=== PATIENT | male | born 1955 | race Caucasian/White ===

== ENCOUNTER 2017-04-15 19:42 | Inpatient (IN) | payer OTHER ==
[~2017-04-15] VITALS: Ht 167.6 cm; Wt 61.3 kg
[~2017-04-15 19:42] MED LIST: AMLO-147 PO; DULOXETINE PO; HYDR-3027 PO; HYDR-902 PO; LYR75 PO; OMEG-135 PO; TRAM50TA2 PO
[2017-04-15] MEDS ORDERED: SODIUM CHLORIDE 0.9% 1L BAG IV* STA (21:06)
[2017-04-15] MEDS ORDERED: ACETAMINOPHEN 325 MG TAB PO STA (21:06)
[2017-04-15] MEDS ORDERED: CEFEPIME 2GM/50 ML (PMX) 50 ML IVPB STA (21:06)
[2017-04-15] MEDS ORDERED: ONDANSETRON 4 MG INJ IV STA (21:19)
[2017-04-15] MEDS ORDERED: morphine 4 MG/ML VIAL IV STA (21:19)
[2017-04-15] MEDS ORDERED: VANCOMYCIN 1 GM (PMX) 250 ML IVPB ONE (21:30)
[2017-04-15] MEDS ORDERED: PHENAZOPYRIDINE 100 MG TAB PO ONE (21:30)
[2017-04-15 21:57] LABS: ABNORMAL IP MESSAGE 1; BASOPHIL # 0.1 10^3/ul (0.0-0.1); BASOPHILS % 0.4 % (0.0-2.0); EOSINOPHILS % 0.1 % (0.0-7.0); HEMATOCRIT 39.4 % (42.0-52.0); HEMOGLOBIN 13.5 g/dl (14.0-18.0); LYMPHOCYTES # 1.3 10^3/ul (0.8-2.9); LYMPHOCYTES % 8.8 % (15.0-51.0); MEAN CORPUSCULAR HEMOGLOBIN 28.4 pg (29.0-33.0); MEAN CORPUSCULAR HGB CONC 34.3 g/dl (32.0-37.0); MEAN CORPUSCULAR VOLUME 82.8 fl (82.0-101.0); MEAN PLATELET VOLUME 9.8 fl (7.4-10.4); MONOCYTE # 1.7 10^3/ul (0.3-0.9); MONOCYTES % 11.3 % (0.0-11.0); NEUTROPHIL # 11.8 10^3/ul (1.6-7.5); NEUTROPHILS % 78.9 % (39.0-77.0); PLATELET COUNT 201 10^3/UL (140-415); POSITIVE DIFF @See below; RED BLOOD COUNT 4.76 10^6/ul (4.70-6.10); WHITE BLOOD COUNT 14.9 10^3/ul (4.8-10.8)
--- NOTE | 2017-04-15 22:22 | RADRPT ---
PROCEDURE: Chest. CLINICAL INDICATION: Chest pain. TECHNIQUE: Single frontal view of the chest was obtained. COMPARISON: 04/14/2014. FINDINGS: The cardiac silhouette is magnified. The aortic arch is unremarkable. There is mild bibasilar atele ctasis. There is no focal consolidation, vascular congestion or pleural effusion. There is no pneum othorax. IMPRESSION: Mild bibasilar atelectasis. .Jun Madrid MD, MD Date Time Electronically viewed and signed by .Jun Madrid MD, MD on 04/15/2017 22:22 .T/
[2017-04-15 22:25] LABS: INR 1.13; PARTIAL THROMBOPLASTIN TIME 33.3 Sec (25.0-35.0); PROTIME 14.5 Sec (12.2-14.2); PT RATIO 1.1
[2017-04-15 22:28] LABS: ALANINE AMINOTRANSFERASE 32 IU/L (13-69); ALBUMIN 4.7 g/dl (3.3-4.9); ALBUMIN/GLOBULIN RATIO 1.42; ALKALINE PHOSPHATASE 72 IU/L (42-121); ANION GAP 22 (8-16); ASPARTATE AMINO TRANSFERASE 26 IU/L (15-46); BILIRUBIN,INDIRECT 2.9 mg/dl (0-1.1); BILIRUBIN,TOTAL 2.9 mg/dl (0.2-1.3); BLOOD UREA NITROGEN 17 mg/dl (7-20); CALCIUM 9.2 mg/dl (8.4-10.2); CARBON DIOXIDE 22 mmol/L (21-31); CHLORIDE 97 mmol/L (97-110); CREATININE 1.25 mg/dl (0.61-1.24); GLUCOSE 115 mg/dl (70-220); SODIUM 137 mmol/L (135-144)
[2017-04-15 22:43] LABS: TROPONIN-I < 0.012 ng/ml (0.00-0.12)
--- NOTE | 2017-04-15 22:47 | RADRPT ---
PROCEDURE: CT Abdomen and Pelvis without contrast. CLINICAL INDICATION: Abdominal pain, fever. TECHNIQUE: A CT scan of the abdomen and pelvis was performed without intravenous contrast. Kulkarni l and sagittal reformatted images were generated. Images were reviewed on a high-resolution PACS wor kstation. CTDIvol: 5.86 mGy. DLP: 314.58 mGy-cm. One or more of the following dose reduction techniques were used: - Automated exposure control. - Adjustment of the mA and/or kV according to patient size. - Use of iterative reconstruction technique. COMPARISON: 05/15/2016 FINDINGS: There is mild atelectasis in both lower lobes. Evaluation of the abdominal and pelvic viscera is limited by the lack of oral and intravenous contra st. The liver is unremarkable. The gallbladder is normal in appearance. The common bile duct is not dila parul. The spleen is not enlarged. No pancreatic lesion is identified and there is no pancreatic ducta l dilatation. The adrenal glands are unremarkable. The kidneys are normal in size. There is no perinephric fat stranding. No hydronephrosis is seen. No urinary stone is identified. The small and large bowel are normal in caliber. There is no bowel wall thickening. The appendix is not definitively identified. There is a Desai catheter in place within the urinary bladder. The pelvic organs are within normal limits. No lymphadenopathy is identified. There is no ascites. No pneumoperitoneum is seen. There are minima l arterial calcifications. No suspicious osseous lesion is idenitified. There are bilateral L5 pars defects, grade 1 L5 anterol isthesis, and severe bilateral neural foraminal narrowing at L5-S1. IMPRESSION: 1. No inflammation, mass, or lymphadenopathy. 2. No obstructive uropathy or urinary stone. 3. The appendix is not definitively identified. If there is concern for appendicitis, close clinic al follow-up is recommended. 4. Bilateral L5 pars defects, grade 1 L5 anterolisthesis, and severe bilateral neural foraminal keshav rowing at L5-S1. RPTAT: HTAR .Aguilar Tyson MD, MD Date Time Electronically viewed and signed by .Aguilar Tyson MD, on 04/15/2017 22:47 .R/
[2017-04-15 23:25] LABS: ADD UMIC YES; UR AMORPHOUS CRYSTAL FEW /HPF (NONE SEEN); UR ASCORBIC ACID NEGATIVE (NEGATIVE); UR BACTERIA MANY /HPF (NONE SEEN); UR BILIRUBIN (Dip) NEGATIVE (NEGATIVE); UR BLOOD (Dip) 2+ mg/dL (NEGATIVE); UR CLARITY SLIGHTLY CLOUDY (CLEAR); UR COLOR AMBER (YELLOW); UR GLUCOSE (Dip) NEGATIVE (NEGATIVE); UR KETONES (Dip) TRACE mg/dL (NEGATIVE); UR LEUKOCYTE ESTERASE (Dip) 3+ Leu/ul (NEGATIVE); UR NITRITE (Dip) POSITIVE (NEGATIVE); UR RBC 2 /HPF (0-5); UR SPECIFIC GRAVITY (Dip) 1.005 (1.003-1.030); UR TOTAL PROTEIN (Dip) NEGATIVE (NEGATIVE); UR UROBILINOGEN (Dip) NEGATIVE (NEGATIVE)
[2017-04-15] MEDS ORDERED: traMADol 50 MG TAB PO PRN (23:30)
[2017-04-15] MEDS ORDERED: ACETAMINOPHEN 325 MG TAB PO PRN (23:30)
[2017-04-15] MEDS ORDERED: NACL 0.9% 3 ML SYG IV SCH (23:30)
[2017-04-15] MEDS ORDERED: morphine 4 MG/ML VIAL IV PRN (23:30)
[2017-04-15] MEDS ORDERED: ONDANSETRON 4 MG INJ IV PRN ×2 (23:30)
[2017-04-16 00:13] VITALS: TEMP 98.5
[2017-04-16 00:30] VITALS: BP 128/80; RESP 18; RESP 85
--- NOTE | 2017-04-16 00:31 | ERA ---
ER Documentation Chief Complaint Date/Time DATE: 04/16/17 TIME: 00:27 Chief Complaint s/p urology procedure at [facility] leg bag +fever chills blood in urine HPI Patient is a 59-year-old male with hypertension who presents with fever and blood in the urine. He has a Desai catheter in place that was put in 6 days ago. It was difficult to place per the family. The patient has blood in his urine and fever which started yesterday. The fever does not stop despite Tylenol per the daughter. He has chills all over and she says "I think he has a UTI". The patient has not been on antibiotics this week. Upon review of old medical records this is the patient's fifth visit to the ER since 2013. The patient's primary doctor is Dr. Grider. ROS All systems reviewed and are negative except as per history of present illness. Medications Home Meds Active Scripts Hydrocodone/Acetaminophen ([place] 10-325 Tablet) 1 Each Tablet, 1 TAB PO Q6H Y for PAIN, #20 TAB Prov:TERESE GONZALEZ 05/15/16 [Duloxetine] 30 MG CAP No Conflict Check, 30 MG PO DAILY for 28 Days, CAP Prov:CYNDIE MACHADO NP 06/26/14 Tramadol HCl (Tramadol HCl) 50 Mg Tab, 100 MG PO Q6H Y for PAIN LEVEL 1-5 for 14 Days, TAB Prov:CYNDIE MACHADO NP 06/26/14 Hydrocodone Bit/Acetaminophen ([place]od[place] HP 10-300) 1 Each Tablet, 1 EACH PO Q6H Y for PAIN LEVEL 6-10 for 14 Days, TAB Prov:CYNDIE MACHADO NP 06/26/14 Pregabalin* (Lyrica*) 75 Mg Cap, 100 MG PO BID for 28 Days Prov:CYNDIE MACHADO NP 06/26/14 Fish Oil* (Fish Oil*) 1,000 Mg Cap, 1000 MG PO BID for 28 Days, CAP Prov:CYNDIE MACHADO NP 06/26/14 Reported Medications Amlodipine Besylate* (Amlodipine Besylate*) 10 Mg Tablet, 10 MG PO DAILY, TAB 06/24/14 Allergies Allergies: Coded Allergies: No Known Allergy (Unverified , 06/24/14) PMhx/Soc History of Surgery: Yes (R inguinal hernia repair, TURP, CYSTOSCOPY) Anesthesia Reaction: No Hx Neurological Disorder: No Hx Respiratory Disorders: No Hx Cardiac Disorders: Yes (HTN) Hx Psychiatric Problems: No Hx Miscellaneous Medical Probl: Yes (Htn) Hx Alcohol Use: No Hx Substance Use: No Hx Tobacco Use: No Smoking Status: Never smoker FmHx Family History: No diabetes Physical Exam Vitals Vital Signs Date Time Temp Pulse Resp B/P Pulse Ox O2 Delivery O2 Flow Rate FiO2 04/16/17 00:13 98.5 85 16 116/81 100 Room Air 04/15/17 22:34 102.2 103 16 141/89 98 04/15/17 19:53 103.3 113 18 110/81 97 Physical Exam Const: Moderate distress Head: Atraumatic Eyes: Normal Conjunctiva ENT: Normal External Ears, Nose and Mouth. Neck: Full range of motion..~ No meningismus. Resp: Clear to auscultation bilaterally Cardio: Regular rate and rhythm, no murmurs Abd: Soft, non tender, non distended. Normal bowel sounds Skin: No petechiae or rashes Back: No midline or flank tenderness Ext: No cyanosis, or edema Neur: Awake and alert : Desai catheter in place with dark urine Result Diagram: 04/15/17214404/15/172144 Results 24 hrs Laboratory Tests Test 04/15/17 21:45 04/15/17 22:53 04/15/17 23:15 White Blood Count 14.910^3/ul Red Blood Count 4.7610^6/ul Hemoglobin 13.5g/dl Hematocrit 39.4% Mean Corpuscular Volume 82.8fl Mean Corpuscular Hemoglobin 28.4pg Mean Corpuscular Hemoglobin Concent 34.3g/dl Red Cell Distribution Width 13.0% Platelet Count 54083^3/UL Mean Platelet Volume 9.8fl Neutrophils % 78.9% Lymphocytes % 8.8% Monocytes % 11.3% Eosinophils % 0.1% Basophils % 0.4% Nucleated Red Blood Cells % 0.0/100WBC Neutrophils # 11.810^3/ul Lymphocytes # 1.310^3/ul Monocytes # 1.710^3/ul Eosinophils # 0.010^3/ul Basophils # 0.110^3/ul Nucleated Red Blood Cells # 0.010^3/ul Prothrombin Time 14.5Sec Prothrombin Time Ratio 1.1 INR International Normalized Ratio 1.13 Activated Partial Thromboplast Time 33.3Sec Sodium Level 137mmol/L Potassium Level 4.0mmol/L Chloride Level 97mmol/L Carbon Dioxide Level 22mmol/L Anion Gap 22 Blood Urea Nitrogen 17mg/dl Creatinine 1.25mg/dl Glucose Level 115mg/dl Lactic Acid Level 1.3mmol/L 0.7mmol/L Calcium Level 9.2mg/dl Total Bilirubin 2.9mg/dl Direct Bilirubin 0.00mg/dl Indirect Bilirubin 2.9mg/dl Aspartate Amino Transf (AST/SGOT) 26IU/L Alanine Aminotransferase (ALT/SGPT) 32IU/L Alkaline Phosphatase 72IU/L Troponin I < 0.012ng/ml Total Protein 8.0g/dl Albumin 4.7g/dl Globulin 3.30g/dl Albumin/Globulin Ratio 1.42 Urine Color PILI Urine Clarity SLIGHTLY CLOUDY Urine pH 6.0 Urine Specific [place] 1.005 Urine Ketones TRACEmg/dL Urine Nitrite POSITIVEmg/dL Urine Bilirubin NEGATIVEmg/dL Urine Urobilinogen NEGATIVEmg/dL Urine Leukocyte Esterase 3+Taisha/ul Urine Microscopic RBC 2/HPF Urine Microscopic WBC 50/HPF Urine Amorphous Crystals FEW/HPF Urine Bacteria MANY/HPF Urine Hemoglobin 2+mg/dL Urine Glucose NEGATIVEmg/dL Urine Total Protein NEGATIVEmg/dl Current Medications Medications (Trade) Dose Ordered Sig/Miguelina Route PRN Reason Start Time Stop Time Status Last Admin Dose Admin Sodium Chloride (NS) 1,900 ml BOLUS OVER 2 HOURS STAT IV* 04/15/17 21:06 04/15/17 21:07 DC 04/15/17 21:35 Acetaminophen 650 mg 650 mg ONCE STAT PO 04/15/17 21:06 04/15/17 21:07 DC 04/15/17 21:36 Cefepime HCl 50 ml @ 100 mls/hr ONCE STAT IVPB 04/15/17 21:06 04/15/17 21:35 DC 04/15/17 21:55 Vancomycin HCl (Vancocin) 250 ml @ 125 mls/hr ONCE ONCE IVPB 04/15/17 21:30 04/15/17 23:29 DC 04/15/17 22:25 Morphine Sulfate (morphine) 4 mg ONCE STAT IV 04/15/17 21:19 04/15/17 21:20 DC Ondansetron HCl (Zofran Inj) 4 mg ONCE STAT IV 04/15/17 21:19 04/15/17 21:20 DC Phenazopyridine HCl (Pyridium) 200 mg ONCE ONCE PO 04/15/17 21:30 04/15/17 21:31 DC 04/15/17 21:37 Ondansetron HCl (Zofran Inj) 4 mg BRIDGE ORDER PRN IV NAUSEA AND/OR VOMITING 04/15/17 23:30 04/16/17 23:29 Acetaminophen 650 mg 650 mg ER BRIDGE PRN PO MILD PAIN/FEVER 04/15/17 23:30 04/16/17 23:29 Sodium Chloride (NS) 1,000 ml @ 75 mls/hr [id number] IV 04/15/17 23:18 UNV IV Flush (NS 3 ml) 3 ml PER PROTOCOL IV 04/15/17 23:30 UNV Ondansetron HCl (Zofran Inj) 4 mg Q6H PRN IV NAUSEA AND/OR VOMITING 04/15/17 23:30 UNV Acetaminophen (Tylenol Tab) 650 mg Q6H PRN PO PAIN LEVEL 1-3 OR FEVER 04/15/17 23:30 UNV Morphine Sulfate (morphine) 2 mg Q4H PRN IV SEVERE PAIN LEVEL 7-10 04/15/17 23:30 UNV Famotidine (Pepcid Iv) 20 mg Q12 IV 04/16/17 09:00 UNV Enoxaparin Sodium 30 mg 30 mg DAILY SC 04/16/17 09:00 UNV Cefepime HCl (Maxipime 1gm/50 ml (Pmx)) 50 ml @ 100 mls/hr Q12 IVPB 04/16/17 09:00 UNV Amlodipine Besylate (Norvasc) 10 mg DAILY PO 04/16/17 09:00 UNV Fish Oil (Fish Oil) 1,000 mg BID PO 04/16/17 09:00 UNV Acetaminophen/ Hydrocodone Bitart ([place] (10/325)) 1 tab Q6H PRN PO PAIN 04/15/17 23:30 UNV Pregabalin (Lyrica) 100 mg BID PO 04/16/17 09:00 UNV Tramadol HCl (Ultram) 100 mg Q6H PRN PO PAIN LEVEL 1-5 04/15/17 23:30 UNV Procedures/MDM EKG read by me: Rate/Rhythm: Sinus tachycardia Intervals: Normal Impression: Sinus tachycardia without ischemia Admit MDM: Patient's infectious symptoms have not stabilized and the patient is at risk of rapid decompensation. The patient will be admitted for careful hydration, antibiotic therapy, and infectious source control. Severe Sepsis criteria: Infectious source: Cystitis End organ damage indicated by: No end organ damage at this time Sepsis Management: Time of recognition of sepsis: Upon arrival Within 3 hours of recognition: Blood cultures x 2 before broad-spectrum antibiotics: Yes 30 ml/kg NS bolus Completed Initial lactate normal Repeat lactate normal Time of recognition of septic shock: No septic shock Septic Shock Assessment: Any lactic acid > 4.0 No Persistent hypotension (SBP < 90 or 40 mmHg drop, MAP < 65) despite 30 mL/kg IV fluid bolus No Volume Re-assessment for Septic Shock (post 30 ml/kg bolus): No septic shock at this time Persistent Hypotension Treatment: Comfort care No Central line Not Required Vasopressor started Not required I considered further perfusion assessment with CVP measurement, SCVO2, bedside ultrasound volume assessment, passive leg raise, trial of further fluid bolus. And proceeded with 30 ml/kg fluid bolus of NSS, broad spectrum antibiotics, and admission. Accepting Care Team Current data and ongoing care discussed. Admitting Physician: Dr. 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 Provision of immediate and broad-spectrum antibiotic therapy. Simultaneous assessment for possible sources in order to direct targeted therapy. Consideration for invasive and chemical support to prevent cardiopulmonary collapse. Departure Diagnosis: Primary Impression: Sepsis Qualified Code: A41.9 - Sepsis, due to unspecified organism Additional Impressions: Anemia Qualified Code: D64.9 - Anemia, unspecified type Cystitis Condition: LIU No MD Apr 16, 2017 00:31
[2017-04-16 01:00] VITALS: Ht 167.6 cm; Wt 61.3 kg
[2017-04-16] MEDS ORDERED: NA PHOSPHATE/BIPHOS 133 ML ENEMA PR ONE (01:30)
[2017-04-16] MEDS: BISACODYL 10 MG SUPP PR PRN (01:56)
[2017-04-16] MEDS: SOD CHLORIDE 0.9% 1,000 ML IV SCH ×2 (01:59→15:27)
[2017-04-16] MEDS: ACETAMINOPHEN 325 MG TAB PO PRN ×3 (02:03→19:30)
[2017-04-16 02:29] VITALS: BP 154/74; RESP 18
[2017-04-16 06:10] LABS: BASOPHILS % 0.2 % (0.0-2.0); EOSINOPHILS % 0.2 % (0.0-7.0); HEMATOCRIT 34.6 % (42.0-52.0); HEMOGLOBIN 11.7 g/dl (14.0-18.0); LYMPHOCYTES # 0.7 10^3/ul (0.8-2.9); LYMPHOCYTES % 5.6 % (15.0-51.0); MEAN CORPUSCULAR HEMOGLOBIN 28.3 pg (29.0-33.0); MEAN CORPUSCULAR HGB CONC 33.8 g/dl (32.0-37.0); MEAN CORPUSCULAR VOLUME 83.8 fl (82.0-101.0); MEAN PLATELET VOLUME 10.4 fl (7.4-10.4); MONOCYTES % 7.9 % (0.0-11.0); NEUTROPHIL # 10.3 10^3/ul (1.6-7.5); NEUTROPHILS % 85.5 % (39.0-77.0); PLATELET COUNT 178 10^3/UL (140-415); RED BLOOD COUNT 4.13 10^6/ul (4.70-6.10); WHITE BLOOD COUNT 12.1 10^3/ul (4.8-10.8)
[2017-04-16 06:38] LABS: ALBUMIN 3.7 g/dl (3.3-4.9); ALBUMIN/GLOBULIN RATIO 1.37; BILIRUBIN,INDIRECT 2.6 mg/dl (0-1.1); BILIRUBIN,TOTAL 2.6 mg/dl (0.2-1.3); CALCIUM 8.3 mg/dl (8.4-10.2); CREATININE 1.02 mg/dl (0.61-1.24); POTASSIUM 3.9 mmol/L (3.5-5.1); TOTAL PROTEIN 6.4 g/dl (6.1-8.1)
[2017-04-16 08:00] VITALS: BP_SYST 147; BP_SYST 96; BP_DIAS 58; BP_DIAS 78; PULSE 88; RESP 18; RESP 20
[2017-04-16] MEDS: PREGABALIN 75 MG CAP PO SCH ×2 (08:21→20:22)
[2017-04-16] MEDS: CEFEPIME 1GM/50 ML (PMX) 50 ML IVPB SCH ×2 (08:40→20:22)
[2017-04-16] MEDS: ENOXAPARIN 30 MG/0.3 ML SYG SC SCH (08:40)
[2017-04-16] MEDS: FISH OIL 1,000 MG CAP PO SCH ×2 (08:41→20:19)
[2017-04-16] MEDS: FAMOTIDINE 20 MG INJ IV SCH ×2 (08:42→20:22)
[2017-04-16] MEDS: AMLODIPINE 10 MG TAB PO SCH (08:44)
[2017-04-16 15:10] VITALS: BP 94/62; RESP 18
--- NOTE | 2017-04-16 15:54 | HP ---
Date/Time of Note Date/Time of Note DATE: 04/16/17 TIME: 15:51 Assessment/Plan VTE Prophylaxis VTE Prophylaxis Intervention: other Lines/Catheters IV Catheter Type (from Nrs): Saline Lock Urinary Cath still in place: Yes Reason Cath still needed: urinary retention, skin wounds contaminated by urine Assessment/Plan Chief Complaint/Hosp Course 1) urinary tract infection - IV antibiotics 2) urinary obstruction - consult urology 3) hypertension - continue medications Problems: HPI/ROS Admit Date/Time Admit Date/Time Apr 15, 2017 at 23:07 Hx of Present Illness Patient with hypertension, BPH presents with fever and dysuria after having cystoscopy recently. Patient was found to have an urinary tract infection and is admitted for antibiotics and further treatment. PMH/Family/Social Past Medical History Medical History: hypertension Social History Smoking Status: Never smoker Exam/Review of Systems Vital Signs Vitals Vital Signs Date Time Temp Pulse Resp B/P Pulse Ox O2 Delivery O2 Flow Rate FiO2 04/16/17 15:10 98.0 84 18 94/62 98 04/16/17 08:00 Room Air Intake and Output 04/15/17 04/15/17 04/16/17 15:00 23:00 07:00 Intake Total 715 ml Output Total 1050 ml Balance -335 ml Exam Constitutional: well developed Head: atraumatic, normocephalic Neck: supple Respiratory: clear to auscultation Cardiovascular: regular rate and rhythm Gastrointestinal: soft Labs Result Diagram: 04/16/17 0511 04/16/17 0510 Medications Medications Current Medications Sodium Chloride (NS) 1,000 ml @ 75 mls/hr [id number] IV Last administered on 04/16 15:27; Admin Dose 75 MLS/HR; Start 04/15/17 at 23:18 Ondansetron HCl (Zofran Inj) 4 mg Q6H PRN IV NAUSEA AND/OR VOMITING; Start at 23:30 Acetaminophen (Tylenol Tab) 650 mg Q6H PRN PO PAIN LEVEL 1-3 OR FEVER Last administered on 04/16/17 08:40; Admin Dose 650 MG; Start 04/15/17 at 23:30 Morphine Sulfate (morphine) 2 mg Q4H PRN IV SEVERE PAIN LEVEL 7-10; Start 04/15 at 23:30 Famotidine (Pepcid Iv) 20 mg Q12 IV Last administered on 04/16/17 08:42; Admin Dose 20 MG; Start 04/16/17 at 09:00 Enoxaparin Sodium 30 mg 30 mg DAILY SC Last administered on 04/16/17 08:40; Admin Dose 30 MG; Start 04/16/17 at 09:00 Cefepime HCl (Maxipime 1gm/50 ml (Pmx)) 50 ml @ 100 mls/hr Q12 IVPB Last administered on 04/16/17 08:40; Admin Dose 100 MLS/HR; Start 04/16/17 at 09:00 Amlodipine Besylate (Norvasc) 10 mg DAILY PO Last administered on 04/16/17 08: 44; Admin Dose 10 MG; Start 04/16/17 at 09:00 Fish Oil (Fish Oil) 1,000 mg BID PO Last administered on 04/16/17 08:41; Admin Dose 1,000 MG; Start 04/16/17 at 09:00 Acetaminophen/ Hydrocodone Bitart ([place] (10/325)) 1 tab Q6H PRN PO PAIN; Start 04/15/17 at 23:30 Pregabalin (Lyrica) 100 mg BID PO ; Start 04/16/17 at 09:00 Tramadol HCl (Ultram) 100 mg Q6H PRN PO PAIN LEVEL 1-5; Start 04/15/17 at 23:30 Bisacodyl (Dulcolax Supp) 10 mg DAILY PRN [place] CONSTIPATION Last administered on 04/16/17 01:56; Admin Dose 10 MG; Start 04/16/17 at 01:30 KENIA BETTS Apr 16, 2017 15:54
--- NOTE | 2017-04-16 20:00 | CONS ---
Date/Time of Note Date/Time of Note DATE: 04/16/17 TIME: 19:52 Assessment/Plan Assessment/Plan Chief Complaint/Hosp Course Urinary retention and urethral stricture that have been dilated at [facility]. Patient does have an indwelling Desai catheter that is draining clear urine, he has been having fever and chills most likely from infection. He is already on cefepime and we shall continue that Problems: Additional Assessment/Plan Keep the Desai catheter in place and is once he is stable then he should go back to [facility] and follow-up with his urologist over there Consultation Date/Type/Reason Admit Date/Time Apr 15, 2017 at 23:07 Date of Consultation: Apr 16, 2017 Type of Consultation: Urology Reason for Consultation Urinary tract infection and urinary retention with fever Referring Provider: KENIA BETTS Hx of Present Illness This is a 61-year-old male who underwent a cystoscopy and urethral dilatation 6 days prior to his admission at [facility]. According to the family there was difficulty inserting a catheter for him and from the type of catheter he has now it indicates that he most likely had urethral stricture that needed to be dilated. The patient after the procedure was having fever and chills which has not subsided with Tylenol therefore the patient came into the emergency room at [facility] and was admitted for further care. the patient does not communicate well in Serbian and the information were obtained from his medical record. Subjective hx not possible: other (Language barrier) Constitutional: chills, febrile Eyes: no complaints ENT: no complaints Respiratory: No cough Cardiovascular: No chest pain, No edema Gastrointestinal: no complaints Genitourinary: other (Has a Desai catheter that is draining clear urine) Musculoskeletal: no complaints Skin: no complaints Neurologic: no complaints Past Medical History Patient presented with fever chills pain when he has just to urinate even though he does have an indwelling Desai catheter. The patient is status post cystoscopy and urethral dilatation [facility] about 8 days earlier Medical History: hypertension, urinary tract infection Past Surgical History Past Surgical Hx: other (Recent cystoscopy with urethral dilatation) Family History Significant Family History: no pertinent family hx Social History Smoking Status: Never smoker Exam/Review of Systems Vital Signs Vitals Vital Signs Date Time Temp Pulse Resp B/P Pulse Ox O2 Delivery O2 Flow Rate FiO2 04/16/17 18:21 99.0 04/16/17 15:10 84 18 94/62 98 04/16/17 08:00 Room Air Intake and Output 04/15/17 04/15/17 04/16/17 15:00 23:00 07:00 Intake Total 715 ml Output Total 1050 ml Balance -335 ml Exam Constitutional: alert Psych: no complaints Head: normocephalic Eyes: nl conjunctiva ENMT: nl external ears & nose Neck: supple Respiratory: normal air movement Cardiovascular: nl pulses Gastrointestinal: non-tender, soft, No mass Genitourinary - Male: nl penis, nl scrotum, other (Has an indwelling Desai catheter), No CVA tenderness Musculoskeletal: nl extremities to inspection Extremities: No calf tenderness Skin: nl turgor Results Result Diagram: 04/16/17 0511 04/16/17 0510 Results 24 hrs Laboratory Tests Test 04/15/17 21:45 04/15/17 22:53 04/15/17 23:15 04/16/17 05:10 White Blood Count 14.9 #H Red Blood Count 4.76 Hemoglobin 13.5 L Hematocrit 39.4 L Mean Corpuscular Volume 82.8 Mean Corpuscular Hemoglobin 28.4 L Mean Corpuscular Hemoglobin Concent 34.3 Red Cell Distribution Width 13.0 Platelet Count 201 Mean Platelet Volume 9.8 Neutrophils % 78.9 H Lymphocytes % 8.8 L Monocytes % 11.3 H Eosinophils % 0.1 Basophils % 0.4 Nucleated Red Blood Cells % 0.0 Neutrophils # 11.8 H Lymphocytes # 1.3 Monocytes # 1.7 H Eosinophils # 0.0 Basophils # 0.1 Nucleated Red Blood Cells # 0.0 Prothrombin Time 14.5 H Prothrombin Time Ratio 1.1 INR International Normalized Ratio 1.13 Activated Partial Thromboplast Time 33.3 Sodium Level 137 135 Potassium Level 4.0 3.9 Chloride Level 97 104 Carbon Dioxide Level 22 21 Anion Gap 22 H 14 # Blood Urea Nitrogen 17 13 Creatinine 1.25 H 1.02 Glucose Level 115 130 Lactic Acid Level 1.3 0.7 Calcium Level 9.2 8.3 L Total Bilirubin 2.9 H 2.6 H Direct Bilirubin 0.00 0.00 Indirect Bilirubin 2.9 H 2.6 H Aspartate Amino Transf (AST/SGOT) 26 23 Alanine Aminotransferase (ALT/SGPT) 32 36 Alkaline Phosphatase 72 71 Troponin I < 0.012 Total Protein 8.0 6.4 # Albumin 4.7 3.7 # Globulin 3.30 H 2.70 Albumin/Globulin Ratio 1.42 1.37 Urine Color PILI Urine Clarity SLIGHTLY CLOUDY A Urine pH 6.0 Urine Specific [place] 1.005 Urine Ketones TRACE A Urine Nitrite POSITIVE A Urine Bilirubin NEGATIVE Urine Urobilinogen NEGATIVE Urine Leukocyte Esterase 3+ H Urine Microscopic RBC 2 Urine Microscopic WBC 50 H Urine Amorphous Crystals FEW A Urine Bacteria MANY A Urine Hemoglobin 2+ H Urine Glucose NEGATIVE Urine Total Protein NEGATIVE Test 04/16/17 05:11 White Blood Count 12.1 H Red Blood Count 4.13 L Hemoglobin 11.7 L Hematocrit 34.6 L Mean Corpuscular Volume 83.8 Mean Corpuscular Hemoglobin 28.3 L Mean Corpuscular Hemoglobin Concent 33.8 Red Cell Distribution Width 13.0 Platelet Count 178 Mean Platelet Volume 10.4 Neutrophils % 85.5 H Lymphocytes % 5.6 L Monocytes % 7.9 Eosinophils % 0.2 Basophils % 0.2 Nucleated Red Blood Cells % 0.0 Neutrophils # 10.3 H Lymphocytes # 0.7 L Monocytes # 1.0 H Eosinophils # 0.0 Basophils # 0.0 Nucleated Red Blood Cells # 0.0 Medications Medications Current Medications Sodium Chloride (NS) 1,000 ml @ 75 mls/hr [id number] IV Last administered on 04/16 15:27; Admin Dose 75 MLS/HR; Start 04/15/17 at 23:18 Ondansetron HCl (Zofran Inj) 4 mg Q6H PRN IV NAUSEA AND/OR VOMITING; Start at 23:30 Acetaminophen (Tylenol Tab) 650 mg Q6H PRN PO PAIN LEVEL 1-3 OR FEVER Last administered on 04/16/17 19:30; Admin Dose 650 MG; Start 04/15/17 at 23:30 Morphine Sulfate (morphine) 2 mg Q4H PRN IV SEVERE PAIN LEVEL 7-10; Start 04/15 at 23:30 Famotidine (Pepcid Iv) 20 mg Q12 IV Last administered on 04/16/17 08:42; Admin Dose 20 MG; Start 04/16/17 at 09:00 Enoxaparin Sodium 30 mg 30 mg DAILY SC Last administered on 04/16/17 08:40; Admin Dose 30 MG; Start 04/16/17 at 09:00 Cefepime HCl (Maxipime 1gm/50 ml (Pmx)) 50 ml @ 100 mls/hr Q12 IVPB Last administered on 04/16/17 08:40; Admin Dose 100 MLS/HR; Start 04/16/17 at 09:00 Amlodipine Besylate (Norvasc) 10 mg DAILY PO Last administered on 04/16/17 08: 44; Admin Dose 10 MG; Start 04/16/17 at 09:00 Fish Oil (Fish Oil) 1,000 mg BID PO Last administered on 04/16/17 08:41; Admin Dose 1,000 MG; Start 04/16/17 at 09:00 Acetaminophen/ Hydrocodone Bitart ([place] (10/325)) 1 tab Q6H PRN PO PAIN; Start 04/15/17 at 23:30 Pregabalin (Lyrica) 100 mg BID PO ; Start 04/16/17 at 09:00 Tramadol HCl (Ultram) 100 mg Q6H PRN PO PAIN LEVEL 1-5; Start 04/15/17 at 23:30 Bisacodyl (Dulcolax Supp) 10 mg DAILY PRN [place] CONSTIPATION Last administered on 04/16/17 01:56; Admin Dose 10 MG; Start 04/16/17 at 01:30 RELL DEJESUS MD Apr 16, 2017 20:00
[2017-04-16 20:58] VITALS: BP 129/80; RESP 18
[2017-04-17] MEDS: ACETAMINOPHEN 325 MG TAB PO PRN ×3 (01:11→21:20)
[2017-04-17] MEDS: SOD CHLORIDE 0.9% 1,000 ML IV SCH ×2 (01:58→09:03)
[2017-04-17 02:40] VITALS: BP 93/57; RESP 18
[2017-04-17 05:36] LABS: BASOPHILS % 0.4 % (0.0-2.0); EOSINOPHILS # 0.2 10^3/ul (0.0-0.5); EOSINOPHILS % 2.3 % (0.0-7.0); HEMATOCRIT 33.6 % (42.0-52.0); LYMPHOCYTES # 1.6 10^3/ul (0.8-2.9); LYMPHOCYTES % 17.2 % (15.0-51.0); MEAN CORPUSCULAR HEMOGLOBIN 27.6 pg (29.0-33.0); MEAN CORPUSCULAR HGB CONC 32.7 g/dl (32.0-37.0); MEAN CORPUSCULAR VOLUME 84.4 fl (82.0-101.0); MONOCYTE # 1.1 10^3/ul (0.3-0.9); MONOCYTES % 11.6 % (0.0-11.0); NEUTROPHIL # 6.2 10^3/ul (1.6-7.5); NEUTROPHILS % 68.2 % (39.0-77.0); PLATELET COUNT 155 10^3/UL (140-415); RED BLOOD COUNT 3.98 10^6/ul (4.70-6.10); RED CELL DISTRIBUTION WIDTH 13.2 % (11.5-14.5); WHITE BLOOD COUNT 9.1 10^3/ul (4.8-10.8)
[2017-04-17 05:54] LABS: CALCIUM 8.3 mg/dl (8.4-10.2); CREATININE 0.79 mg/dl (0.61-1.24); POTASSIUM 3.9 mmol/L (3.5-5.1)
[2017-04-17 08:32] VITALS: BP 107/71; RESP 20
[2017-04-17] MEDS: ENOXAPARIN 30 MG/0.3 ML SYG SC SCH (08:59)
[2017-04-17] MEDS: AMLODIPINE 10 MG TAB PO SCH (09:00)
[2017-04-17] MEDS: FISH OIL 1,000 MG CAP PO SCH ×2 (09:00→21:19)
[2017-04-17] MEDS: PREGABALIN 75 MG CAP PO SCH ×2 (09:00→21:00)
[2017-04-17] MEDS: FAMOTIDINE 20 MG INJ IV SCH (09:01)
[2017-04-17] MEDS: CEFEPIME 1GM/50 ML (PMX) 50 ML IVPB SCH ×2 (09:01→21:21)
[2017-04-17] MEDS: HYDROCODONE/APAP (10/325) TAB PO PRN (12:35)
--- NOTE | 2017-04-17 13:36 | PN ---
Date/Time of Note Date/Time of Note DATE: 04/17/17 TIME: 13:35 Assessment/Plan VTE Prophylaxis VTE Prophylaxis Intervention: other Lines/Catheters IV Catheter Type (from [facility]): Saline Lock Urinary Cath still in place: Yes Reason Cath still needed: urinary retention Assessment/Plan Chief Complaint/Hosp Course 1) urinary tract infection - IV antibiotics 2) urinary obstruction - consult urology 3) hypertension - continue medications Problems: Subjective 24 Hr Interval Summary Free Text/Dictation Patient complain of abdominal bloating Exam/Review of Systems Vital Signs Vitals Vital Signs Date Time Temp Pulse Resp B/P Pulse Ox O2 Delivery O2 Flow Rate FiO2 04/17/17 08:32 97.4 78 20 107/71 97 04/16/17 08:00 Room Air Intake and Output 04/16/17 04/16/17 04/17/17 15:00 23:00 07:00 Intake Total 1755 ml 1230 ml Output Total 1200 ml 2000 ml Balance 555 ml -770 ml Exam Constitutional: well developed Head: atraumatic, normocephalic Neck: supple Respiratory: clear to auscultation Cardiovascular: regular rate and rhythm Gastrointestinal: non-tender, soft Extremities: normal pulses Results Result Diagram: 04/17/17 0506 04/17/17 0507 Results 24 hrs Laboratory Tests Test 04/17/17 05:06 04/17/17 05:07 White Blood Count 9.1 # Red Blood Count 3.98 L Hemoglobin 11.0 L Hematocrit 33.6 L Mean Corpuscular Volume 84.4 Mean Corpuscular Hemoglobin 27.6 L Mean Corpuscular Hemoglobin Concent 32.7 Red Cell Distribution Width 13.2 Platelet Count 155 Mean Platelet Volume 10.0 Neutrophils % 68.2 Lymphocytes % 17.2 Monocytes % 11.6 H Eosinophils % 2.3 Basophils % 0.4 Nucleated Red Blood Cells % 0.0 Neutrophils # 6.2 Lymphocytes # 1.6 Monocytes # 1.1 H Eosinophils # 0.2 Basophils # 0.0 Nucleated Red Blood Cells # 0.0 Sodium Level 140 Potassium Level 3.9 Chloride Level 104 Carbon Dioxide Level 24 Anion Gap 16 Blood Urea Nitrogen 8 Creatinine 0.79 Glucose Level 115 Calcium Level 8.3 L Medications Medications Current Medications Sodium Chloride (NS) 1,000 ml @ 75 mls/hr [id number] IV Last administered on 09:03; Admin Dose 75 MLS/HR; Start 04/15/17 at 23:18 Ondansetron HCl (Zofran Inj) 4 mg Q6H PRN IV NAUSEA AND/OR VOMITING; Start at 23:30 Acetaminophen (Tylenol Tab) 650 mg Q6H PRN PO PAIN LEVEL 1-3 OR FEVER Last administered on 04/17/17 09:03; Admin Dose 650 MG; Start 04/15/17 at 23:30 Morphine Sulfate (morphine) 2 mg Q4H PRN IV SEVERE PAIN LEVEL 7-10; Start 04/15 at 23:30 Famotidine (Pepcid Iv) 20 mg Q12 IV Last administered on 04/17/17 09:01; Admin Dose 20 MG; Start 04/16/17 at 09:00 Enoxaparin Sodium 30 mg 30 mg DAILY SC Last administered on 04/17/17 08:59; Admin Dose 30 MG; Start 04/16/17 at 09:00 Cefepime HCl (Maxipime 1gm/50 ml (Pmx)) 50 ml @ 100 mls/hr Q12 IVPB Last administered on 04/17/17 09:01; Admin Dose 100 MLS/HR; Start 04/16/17 at 09:00 Amlodipine Besylate (Norvasc) 10 mg DAILY PO Last administered on 04/16/17 08: 44; Admin Dose 10 MG; Start 04/16/17 at 09:00 Fish Oil (Fish Oil) 1,000 mg BID PO Last administered on 04/17/17 09:00; Admin Dose 1,000 MG; Start 04/16/17 at 09:00 Acetaminophen/ Hydrocodone Bitart ([place] (10/325)) 1 tab Q6H PRN PO PAIN Last administered on 04/17/17 12:35; Admin Dose 1 TAB; Start 04/15/17 at 23:30 Pregabalin (Lyrica) 100 mg BID PO ; Start 04/16/17 at 09:00 Tramadol HCl (Ultram) 100 mg Q6H PRN PO PAIN LEVEL 1-5; Start 04/15/17 at 23:30 Bisacodyl (Dulcolax Supp) 10 mg DAILY PRN [place] CONSTIPATION Last administered on 04/16/17 01:56; Admin Dose 10 MG; Start 04/16/17 at 01:30 KENIA BETTS Apr 17, 2017 13:36
[2017-04-17 14:00] VITALS: BP 112/74; RESP 18
[2017-04-17 20:55] VITALS: BP 147/99; RESP 18
[2017-04-17] MEDS: DOCUSATE SODIUM 100 MG CAP PO SCH (21:21)
[2017-04-18] MEDS: SOD CHLORIDE 0.9% 1,000 ML IV SCH ×2 (00:42→15:48)
[2017-04-18] MEDS: HYDROCODONE/APAP (10/325) TAB PO PRN (02:38)
[2017-04-18 02:57] VITALS: BP 132/82; RESP 18
[2017-04-18 05:59] LABS: BASOPHILS % 0.4 % (0.0-2.0); EOSINOPHILS # 0.2 10^3/ul (0.0-0.5); EOSINOPHILS % 4.5 % (0.0-7.0); HEMATOCRIT 33.8 % (42.0-52.0); HEMOGLOBIN 11.2 g/dl (14.0-18.0); LYMPHOCYTES % 20.6 % (15.0-51.0); MEAN CORPUSCULAR HEMOGLOBIN 27.8 pg (29.0-33.0); MEAN CORPUSCULAR HGB CONC 33.1 g/dl (32.0-37.0); MEAN CORPUSCULAR VOLUME 83.9 fl (82.0-101.0); MEAN PLATELET VOLUME 10.2 fl (7.4-10.4); MONOCYTE # 0.8 10^3/ul (0.3-0.9); MONOCYTES % 15.2 % (0.0-11.0); NEUTROPHIL # 2.9 10^3/ul (1.6-7.5); NEUTROPHILS % 58.9 % (39.0-77.0); PLATELET COUNT 183 10^3/UL (140-415); RED BLOOD COUNT 4.03 10^6/ul (4.70-6.10); RED CELL DISTRIBUTION WIDTH 13.1 % (11.5-14.5); WHITE BLOOD COUNT 4.9 10^3/ul (4.8-10.8)
[2017-04-18] MEDS: PANTOPRAZOLE 40 MG INJ IV SCH (06:09)
[2017-04-18 06:49] LABS: CALCIUM 8.6 mg/dl (8.4-10.2); CREATININE 0.84 mg/dl (0.61-1.24); POTASSIUM 3.9 mmol/L (3.5-5.1)
[2017-04-18 08:09] VITALS: BP 131/88; RESP 18
[2017-04-18] MEDS: PREGABALIN 75 MG CAP PO SCH (09:00)
[2017-04-18] MEDS: FISH OIL 1,000 MG CAP PO SCH ×2 (09:26→20:18)
[2017-04-18] MEDS: DOCUSATE SODIUM 100 MG CAP PO SCH ×2 (09:26→20:18)
[2017-04-18] MEDS: AMLODIPINE 10 MG TAB PO SCH (09:28)
[2017-04-18] MEDS: ENOXAPARIN 30 MG/0.3 ML SYG SC SCH (09:29)
[2017-04-18] MEDS: CEFEPIME 1GM/50 ML (PMX) 50 ML IVPB SCH ×2 (09:29→20:20)
--- NOTE | 2017-04-18 11:11 | PN ---
Date/Time of Note Date/Time of Note DATE: 04/18/17 TIME: 11:10 Assessment/Plan VTE Prophylaxis VTE Prophylaxis Intervention: other Lines/Catheters IV Catheter Type (from Nrs): Saline Lock Urinary Cath still in place: Yes Reason Cath still needed: urinary retention Assessment/Plan Chief Complaint/Hosp Course 1) urinary tract infection - IV antibiotics 2) urinary obstruction - consult urology 3) hypertension - continue medications Problems: Subjective 24 Hr Interval Summary Free Text/Dictation Patient has no complaints Exam/Review of Systems Vital Signs Vitals Vital Signs Date Time Temp Pulse Resp B/P Pulse Ox O2 Delivery O2 Flow Rate FiO2 04/18/17 08:09 98.2 78 18 131/88 95 04/16/17 08:00 Room Air Intake and Output 04/17/17 04/17/17 04/18/17 15:00 23:00 07:00 Intake Total 80 ml 1440 ml 1125 ml Output Total 2400 ml 2150 ml Balance 80 ml -960 ml -1025 ml Exam Constitutional: well developed Head: atraumatic, normocephalic Neck: supple Respiratory: clear to auscultation Cardiovascular: regular rate and rhythm Gastrointestinal: non-tender, soft Extremities: normal pulses Results Result Diagram: 04/18/17 0531 04/18/17 0531 Results 24 hrs Laboratory Tests Test 04/18/17 05:31 White Blood Count 4.9 # Red Blood Count 4.03 L Hemoglobin 11.2 L Hematocrit 33.8 L Mean Corpuscular Volume 83.9 Mean Corpuscular Hemoglobin 27.8 L Mean Corpuscular Hemoglobin Concent 33.1 Red Cell Distribution Width 13.1 Platelet Count 183 Mean Platelet Volume 10.2 Neutrophils % 58.9 Lymphocytes % 20.6 Monocytes % 15.2 H Eosinophils % 4.5 Basophils % 0.4 Nucleated Red Blood Cells % 0.0 Neutrophils # 2.9 Lymphocytes # 1.0 Monocytes # 0.8 Eosinophils # 0.2 Basophils # 0.0 Nucleated Red Blood Cells # 0.0 Sodium Level 140 Potassium Level 3.9 Chloride Level 105 Carbon Dioxide Level 23 Anion Gap 16 Blood Urea Nitrogen 8 Creatinine 0.84 Glucose Level 111 Calcium Level 8.6 Medications Medications Current Medications Sodium Chloride (NS) 1,000 ml @ 75 mls/hr [id number] IV Last administered on t 00:42; Admin Dose 75 MLS/HR; Start 04/15/17 at 23:18 Ondansetron HCl (Zofran Inj) 4 mg Q6H PRN IV NAUSEA AND/OR VOMITING; Start at 23:30 Acetaminophen (Tylenol Tab) 650 mg Q6H PRN PO PAIN LEVEL 1-3 OR FEVER Last administered on 04/17/17 21:20; Admin Dose 650 MG; Start 04/15/17 at 23:30 Morphine Sulfate (morphine) 2 mg Q4H PRN IV SEVERE PAIN LEVEL 7-10; Start 04/15 at 23:30 Enoxaparin Sodium 30 mg 30 mg DAILY SC Last administered on 04/18/17 09:29; Admin Dose 30 MG; Start 04/16/17 at 09:00 Cefepime HCl (Maxipime 1gm/50 ml (Pmx)) 50 ml @ 100 mls/hr Q12 IVPB Last administered on 04/18/17 09:29; Admin Dose 100 MLS/HR; Start 04/16/17 at 09:00 Amlodipine Besylate (Norvasc) 10 mg DAILY PO Last administered on 04/18/17 09: 28; Admin Dose 10 MG; Start 04/16/17 at 09:00 Fish Oil (Fish Oil) 1,000 mg BID PO Last administered on 04/18/17 09:26; Admin Dose 1,000 MG; Start 04/16/17 at 09:00 Acetaminophen/ Hydrocodone Bitart ([place] (10/325)) 1 tab Q6H PRN PO PAIN Last administered on 04/18/17 02:38; Admin Dose 1 TAB; Start 04/15/17 at 23:30 Pregabalin (Lyrica) 100 mg BID PO ; Start 04/16/17 at 09:00 Tramadol HCl (Ultram) 100 mg Q6H PRN PO PAIN LEVEL 1-5; Start 04/15/17 at 23:30 Bisacodyl (Dulcolax Supp) 10 mg DAILY PRN [place] CONSTIPATION Last administered on 04/16/17 01:56; Admin Dose 10 MG; Start 04/16/17 at 01:30 Pantoprazole (Protonix Iv) 40 mg DAILY@06 IV Last administered on 04/18/17 06: 09; Admin Dose 40 MG; Start 04/18/17 at 06:00 Docusate Sodium (Colace) 100 mg BID PO Last administered on 04/18/17 09:26; Admin Dose 100 MG; Start 04/17/17 at 21:00 KENIA BETTS Apr 18, 2017 11:11
[2017-04-18 14:38] VITALS: BP 144/88; RESP 17
--- NOTE | 2017-04-18 19:33 | PN ---
Date/Time of Note Date/Time of Note DATE: 04/18/17 TIME: 19:26 Assessment/Plan VTE Prophylaxis VTE Prophylaxis Intervention: ambulation Lines/Catheters IV Catheter Type (from [facility]): Saline Lock Urinary Cath still in place: Yes Reason Cath still needed: other (indicate) (Urological surgery) Assessment/Plan Chief Complaint/Hosp Course Urinary retention and urethral stricture that have been dilated at [facility]. Patient does have an indwelling Desai catheter that is draining clear urine, He is already on cefepime for urinary tract infection the urine culture showed 2 organisms and they both sensitive to Cipro, the recommendation would be therefore to discharge him tomorrow on Cipro 500 mg every 12 hours for 7 days and keep the Desai catheter in place connected to a leg bag and the day after tomorrow he will go and see the urologist at [facility] and there they will take his catheter and hopefully he will be able to urinate on his own Problems: Subjective 24 Hr Interval Summary Free Text/Dictation The patient does not speak [place]. His daughter who works in this hospital was at his bedside and translated to him. She tells me that he has an appointment with a urologist at [facility] on April 20 to have the catheter removed. She did have a picture of the urethral stricture that he had. Constitutional: no complaints Eyes: no complaints ENT: no complaints Respiratory: no complaints Cardiovascular: no complaints Gastrointestinal: constipation Genitourinary: No flank pain, No hematuria Musculoskeletal: no complaints Skin: no complaints Endocrine: no complaints Exam/Review of Systems Vital Signs Vitals Vital Signs Date Time Temp Pulse Resp B/P Pulse Ox O2 Delivery O2 Flow Rate FiO2 04/18/17 14:38 98.7 89 17 144/88 96 04/16/17 08:00 Room Air Intake and Output 04/17/17 04/17/17 04/18/17 15:00 23:00 07:00 Intake Total 80 ml 1440 ml 1125 ml Output Total 2400 ml 2150 ml Balance 80 ml -960 ml -1025 ml Exam Constitutional: alert, oriented Psych: no complaints Head: normocephalic Eyes: nl conjunctiva ENMT: nl external ears & nose Neck: non-tender, supple Respiratory: normal air movement Cardiovascular: regular rate and rhythm Gastrointestinal: non-tender, soft Genitourinary - Male: nl penis, nl scrotum (Has an indwelling Desai catheter) Musculoskeletal: nl extremities to inspection Extremities: No calf tenderness, No edema, No tenderness Skin: nl turgor Results Result Diagram: 04/18/1731 04/18/17 0531 Results 24 hrs Laboratory Tests Test 04/18/17 05:31 White Blood Count 4.9 # Red Blood Count 4.03 L Hemoglobin 11.2 L Hematocrit 33.8 L Mean Corpuscular Volume 83.9 Mean Corpuscular Hemoglobin 27.8 L Mean Corpuscular Hemoglobin Concent 33.1 Red Cell Distribution Width 13.1 Platelet Count 183 Mean Platelet Volume 10.2 Neutrophils % 58.9 Lymphocytes % 20.6 Monocytes % 15.2 H Eosinophils % 4.5 Basophils % 0.4 Nucleated Red Blood Cells % 0.0 Neutrophils # 2.9 Lymphocytes # 1.0 Monocytes # 0.8 Eosinophils # 0.2 Basophils # 0.0 Nucleated Red Blood Cells # 0.0 Sodium Level 140 Potassium Level 3.9 Chloride Level 105 Carbon Dioxide Level 23 Anion Gap 16 Blood Urea Nitrogen 8 Creatinine 0.84 Glucose Level 111 Calcium Level 8.6 Medications Medications Current Medications Sodium Chloride (NS) 1,000 ml @ 75 mls/hr [id number] IV Last administered on 15:48; Admin Dose 75 MLS/HR; Start 04/15/17 at 23:18 Ondansetron HCl (Zofran Inj) 4 mg Q6H PRN IV NAUSEA AND/OR VOMITING; Start at 23:30 Acetaminophen (Tylenol Tab) 650 mg Q6H PRN PO PAIN LEVEL 1-3 OR FEVER Last administered on 04/17/17 21:20; Admin Dose 650 MG; Start 04/15/17 at 23:30 Morphine Sulfate (morphine) 2 mg Q4H PRN IV SEVERE PAIN LEVEL 7-10; Start 04/15 at 23:30 Enoxaparin Sodium 30 mg 30 mg DAILY SC Last administered on 04/18/17 09:29; Admin Dose 30 MG; Start 04/16/17 at 09:00 Cefepime HCl (Maxipime 1gm/50 ml (Pmx)) 50 ml @ 100 mls/hr Q12 IVPB Last administered on 04/18/17 09:29; Admin Dose 100 MLS/HR; Start 04/16/17 at 09:00 Amlodipine Besylate (Norvasc) 10 mg DAILY PO Last administered on 04/18/17 09: 28; Admin Dose 10 MG; Start 04/16/17 at 09:00 Fish Oil (Fish Oil) 1,000 mg BID PO Last administered on 04/18/17 09:26; Admin Dose 1,000 MG; Start 04/16/17 at 09:00 Acetaminophen/ Hydrocodone Bitart ([place] (10/325)) 1 tab Q6H PRN PO PAIN Last administered on 04/18/17 02:38; Admin Dose 1 TAB; Start 04/15/17 at 23:30 Pregabalin (Lyrica) 100 mg BID PO ; Start 04/16/17 at 09:00 Tramadol HCl (Ultram) 100 mg Q6H PRN PO PAIN LEVEL 1-5; Start 04/15/17 at 23:30 Bisacodyl (Dulcolax Supp) 10 mg DAILY PRN [place] CONSTIPATION Last administered on 04/16/17 01:56; Admin Dose 10 MG; Start 04/16/17 at 01:30 Pantoprazole (Protonix Iv) 40 mg DAILY@06 IV Last administered on 04/18/17 06: 09; Admin Dose 40 MG; Start 04/18/17 at 06:00 Docusate Sodium (Colace) 100 mg BID PO Last administered on 04/18/17 09:26; Admin Dose 100 MG; Start 04/17/17 at 21:00 RELL DEJESUS MD Apr 18, 2017 19:33
[2017-04-18] MEDS: BISACODYL 10 MG SUPP PR PRN (20:18)
[2017-04-18] MEDS: PREGABALIN 100 MG CAP PO SCH (20:26)
[2017-04-18 21:05] VITALS: BP 133/83; RESP 18
[2017-04-19 02:57] VITALS: BP 136/85; RESP 18
[2017-04-19] MEDS ORDERED: CIPROFLOXACIN 500 MG TAB PO SCH (06:00)
[2017-04-19] MEDS: PANTOPRAZOLE 40 MG INJ IV SCH (06:09)
[2017-04-19] MEDS: SOD CHLORIDE 0.9% 1,000 ML IV SCH (06:11)
[2017-04-19 08:00] VITALS: BP 131/86; RESP 19
[2017-04-19] MEDS: DOCUSATE SODIUM 100 MG CAP PO SCH (09:06)
[2017-04-19] MEDS: PREGABALIN 100 MG CAP PO SCH (09:06)
[2017-04-19] MEDS: FISH OIL 1,000 MG CAP PO SCH (09:06)
[2017-04-19] MEDS: AMLODIPINE 10 MG TAB PO SCH (09:06)
[2017-04-19] MEDS: CEFEPIME 1GM/50 ML (PMX) 50 ML IVPB SCH (09:06)
[2017-04-19] MEDS: ENOXAPARIN 30 MG/0.3 ML SYG SC SCH (09:38)
[2017-04-19] MEDS: BISACODYL 10 MG SUPP PR PRN (11:30)
--- NOTE | 2017-04-19 13:15 | DS ---
Date/Time of Note Date/Time of Note DATE: 04/19/17 TIME: 13:13 Discharge Summary Admission/Discharge Info Admit Date/Time Apr 15, 2017 at 23:07 Discharge Date/Time 04/19/17 Discharge Diagnosis 1) urinary tract infection 2) benign prostatic hypertrophy Patient Condition: Fair Consults urology Hx of Present Illness Patient with hypertension, BPH presents with fever and dysuria after having cystoscopy recently. Patient was found to have an urinary tract infection and is admitted for antibiotics and further treatment. Hospital Course Urinary retention and urethral stricture that have been dilated at [facility]. Patient does have an indwelling Desai catheter that is draining clear urine, He is already on cefepime for urinary tract infection the urine culture showed 2 organisms and they both sensitive to Cipro, the recommendation would be therefore to discharge him tomorrow on Cipro 500 mg every 12 hours for 7 days and keep the Desai catheter in place connected to a leg bag and the day after tomorrow he will go and see the urologist at [facility] and there they will take his catheter and hopefully he will be able to urinate on his own. After several days on IV antibiotics, he will be discharged on oral antibiotics to follow up with his urologist. Home Meds Active Scripts Hydrocodone/Acetaminophen ([place] 10-325 Tablet) 1 Each Tablet, 1 TAB PO Q6H Y for PAIN, #20 TAB Prov:TERESE GONZALEZ 05/15/16 [Duloxetine] 30 MG CAP No Conflict Check, 30 MG PO DAILY for 28 Days, CAP Prov:CYNDIE MACHADO NP 06/26/14 Tramadol HCl (Tramadol HCl) 50 Mg Tab, 100 MG PO Q6H Y for PAIN LEVEL 1-5 for 14 Days, TAB Prov:CYNDIE MACHADO NP 06/26/14 Hydrocodone Bit/Acetaminophen (Vicodin HP 10-300) 1 Each Tablet, 1 EACH PO Q6H Y for PAIN LEVEL 6-10 for 14 Days, TAB Prov:CYNDIE MACHADO NP 06/26/14 Pregabalin* (Lyrica*) 75 Mg Cap, 100 MG PO BID for 28 Days Prov:CYNDIE MACHADO NP 06/26/14 Fish Oil* (Fish Oil*) 1,000 Mg Cap, 1000 MG PO BID for 28 Days, CAP Prov:CYNDIE MACHADO NP 06/26/14 Reported Medications Amlodipine Besylate* (Amlodipine Besylate*) 10 Mg Tablet, 10 MG PO DAILY, TAB 06/24/14 Primary Care Provider Not On Staff Doctor KENIA BETTS Apr 19, 2017 13:15
[2017-04-19 14:00] VITALS: BP 123/77; RESP 18
== END 2017-04-19 14:30 | disposition home or self-care (01) | DRG 690 ==
LOC: E/R 19:42 → PP2 23:07
PROVIDERS: ADMIT Internal Medicine; ATTEND Internal Medicine
DX: N39.0 Urinary tract infection, site not specified (principal); I10 Essential (primary) hypertension; N40.0 Benign prostatic hyperplasia without lower urinary tract symptoms
CPT/HCPCS: 36415; 71010; 74176; 80048; 80053; 81001; 83605; 84484; 85025; 85610; 85730; 87040; 87045; 87086; 93005; 96365; 96366; 96375; C9113; J0692; J1650; J2270; J2405; J3370; J7030